=== PATIENT | male | born 1935 | race Hispanic/Latino ===

== ENCOUNTER 2019-09-17 12:39 | Outpatient (RCR) | payer MEDICARE ==
--- NOTE | 2019-09-11 11:22 | NUR ---
Clinical Swallow Evaluation/Initial Treatment Session Patient is an 84 year old male with diagnosis of aspiration and chronic cough. Pt participated in a modified barium swallow study on 06/18/19. Pt presented with mild pharyngeal dysphagia c/b consistent premature spillage over the base of tongue, consistent laryngeal penetration to the level of the vocal cords with thin liquids, and consistent pharyngeal residue after the swallow. Dysphagia was judged to be secondary to decreased hyolaryngeal excursion, decreased pharyngeal constriction, and decreased coordination of the swallow. While no aspiration was noted, it is likely that, during normal eating environments, material collects in the laryngeal vestibule and eventually spills into the airway. It is also possible pt has laryngopharyngeal reflux (LPR), as evidenced by changes in vocal quality and globus sensation, which may have contributed to his dysphagia. Recommendation was made for dysphagia therapy to increase strength and coordination of swallow. Patient was seen today in the outpatient clinic for initial treatment of Neuromuscular Electrical Stimulation (NMES) with VitalStim Therapy and traditional dysphagia therapy with pharyngeal exercises. Staff member present to provide translation assistance. Pt was seen with no family present. Oral motor exam revealed function that was grossly within normal limits. Patient tolerated room air. Hearing appeared to be WFL. Patient reported no change in his swallow skills since the modified barium swallow study. Pt confirmed that pt continues to choke and cough intermittently during meal times. Provided extensive education re: need for therapy, purpose of exercises and NMES, and future plan of care. Pt indicated understanding. Pt was given water and hard candy. Pt was instructed to take small bites/sips and swallow hard, feeling all the muscles in his throat contract. Placement 3b was used to target the mylohyoid muscle, the anterior belly of the digastric muscle, the sternohyoid muscle, the omohyoid muscle, the geniohyoid muscle, and the middle pharyngeal constrictors. Channel 1 of the electrodes was aligned horizontally just above the hyoid bone and channel 2 of the electrodes was aligned horizontally at the level of the thyroid notch. This placement was used to improve base of tongue strength, pharyngeal constriction, and UES function. Pt initially tolerated 10.0 mA, but as the session progressed pt tolerated 18.0 mA. Pt received 45 minutes of stimulation. Cough noted X 1, throat clear throughout. During NMES an exercise program was presented, demonstrated, and discussed. Pt completed the exercises with moderate assistance. A home program was assigned. Pt verbalized understanding of the home exercise program. Education provided as indicated. All questions were answered. Impressions: Pt tolerated initial session of NMES well. He continues to report and demonstrate s/s of aspiration during meals which significantly interferes with his quality of life. Pt is an excellent candidate for dysphagia exercises and NMES for improvement of strength and coordination of swallow. Recommendations: 1.Dysphagia therapy to include traditional exercises and NMES 3X/week for 4 weeks for a total of 12 treatment sessions 2.Home exercise program 3.Repeat MBS in 4 weeks with new goals to be determined at that time. Longterm Goal: Pt will tolerate least restrictive diet without s/s of aspiration as judged by an objective evaluation. Short Term Goals: 1.Pt will complete 3 repetitions of a set of dysphagia exercises to improve laryngeal elevation, base of tongue retraction, and laryngeal closure, 10 repetitions per exercise, with minimal cues. 2.Pt will tolerate NMES for 45 60 minutes with no clinical s/s of aspiration to improve strength of pharyngeal constrictors, hyolaryngeal excursion, and safety with po intake. 3.Pt will complete home dysphagia exercise program targeting laryngeal elevation, base of tongue strength, and cricopharyngeal function independently. 4.Pt will follow aspiration precautions with independence. 5.Pt will participate in a repeat Modified Barium Swallow study to objectively re-assess swallow safety and function and determine safest diet. Cat Rasmussen M.A. [facility] Date of Session: 09/11/19 Dysphagia Evaluation X 64 minutes ANA LILIA NOMS Rating for Swallowing: Level 6
[~2019-09-17 12:39] MED LIST: ASPIRIN PO
== END 2019-09-18 ==
LOC: ST 12:39
PROVIDERS: ATTEND Internal Medicine Critical Care Medicine
DX: R13.13 Dysphagia, pharyngeal phase (principal); R05 Cough; K21.9 Gastro-esophageal reflux disease without esophagitis

== ENCOUNTER 2019-09-19 12:47 | Outpatient (RCR) | payer MEDICARE ==
--- NOTE | 2019-09-21 11:34 | NUR ---
ST NOTE: Pt called to cx apt today, he will return to therapy 08/24/19
--- NOTE | 2019-09-24 13:27 | NUR ---
ST NOTE: Pt no show, will phone pt to confirm next apt.
--- NOTE | 2019-09-26 10:31 | NUR ---
ST Note: Pt called and reported that he and his physician met and decided to try a new treatment direction. Pt cancelled all future therapy appointments. Pt stated he would call back if/when he desires to re-schedule.
== END 2019-10-18 ==
LOC: ST 12:47
PROVIDERS: ATTEND Internal Medicine Critical Care Medicine
DX: R13.13 Dysphagia, pharyngeal phase (principal); R05 Cough; R09.89 Other specified symptoms and signs involving the circulatory and respiratory systems

== ENCOUNTER → 2024-12-13 | Outpatient (REF) | payer MEDICARE | LOC: RAD 11:07 | PROVIDERS: ATTEND Nurse Practitioner Family | DX: R13.10 Dysphagia, unspecified (principal); R05.9 Cough, unspecified | CPT/HCPCS: 71046 ==

== ENCOUNTER → 2025-01-08 | Outpatient (REF) | payer MEDICARE | LOC: DX 09:40 | PROVIDERS: ATTEND Nurse Practitioner Family | DX: R05.9 Cough, unspecified (principal); R13.13 Dysphagia, pharyngeal phase | CPT/HCPCS: 74230 ==